=== PATIENT | male | born 1985 ===

== ENCOUNTER 2017-07-08 09:16 | Emergency (ER) | payer SELFPAY ==
--- NOTE | 2017-07-08 09:56 | UC ---
Lower Extremity/Ankle HPI - HPI Summary HPI Summary: 32 y/o male presents to the urgent care c/o of RT knee pain and swelling for the past 2 weeks. Pt states symptoms began when he did a sudden movement at work moving some boxes and he heard his RT knee popped. He has severe pain which resolved later that day. Since then he has been having mild pain specially when ambulating. Now he has developed pain in the left side of his RT lower leg, since he puts more weights on that side when he walks. Pain is 3/ 10 at rest and 6/10 when walking. He has been placing ice on and off. Pt denies fever, SOB, chest pain, N/V/D. Pt has not other complains. - History of Current Complaint Chief Complaint: UCLowerExtremity Stated Complaint: KNEE,CALF,LEG PAIN/INJURY Time Seen by Provider: 07/08/17 09:46 Hx Obtained From: Patient Onset/Duration: Sudden Onset, Lasting Days, Still Present Severity Initially: Severe Severity Currently: Moderate Pain Intensity: 6 - w/ ambulation Pain Scale Used: 0-10 Numeric Aggravating Factor(s): Ambulation Alleviating Factor(s): Rest Able to Bear Weight: Yes - Risk Factors Gout Risk Factors: Negative DVT Risk Factors: Negative Septic Arthritis Risk Factor: Negative - Allergies/Home Medications Allergies/Adverse Reactions: Allergies Allergy/AdvReac Type Severity Reaction Status Date / Time No Known Allergies Allergy Verified 07/08/17 09:36 Home Medications: Home Medications Ibuprofen [Advil] 400 mg PO 07/08/17 [History] PMH/Surg Hx/FS Hx/Imm Hx Previously Healthy: Yes Cardiovascular History: Hypertension - Diet control - Surgical History Surgical History: None - Family History Known Family History: Positive: Hypertension, Diabetes - Social History Occupation: Employed Full-time Lives: With Family Alcohol Use: Rare Substance Use Type: None Smoking Status (MU): Never Smoked Tobacco Review of Systems Constitutional: Negative Skin: Negative Eyes: Negative ENT: Negative Respiratory: Negative Cardiovascular: Negative Gastrointestinal: Negative Genitourinary: Negative Motor: Negative Neurovascular: Negative Musculoskeletal: Negative, Other: - RT knee pain and swelling Neurological: Negative Psychological: Negative All Other Systems Reviewed And Are Negative: Yes Physical Exam Triage Information Reviewed: Yes Appearance: Well-Appearing, No Pain Distress, Well-Nourished, Obese Vital Signs: Initial Vital Signs Temp 98.6 F 07/08/17 09:33 Pulse 77 07/08/17 09:33 Resp 18 07/08/17 09:33 BP 137/71 07/08/17 09:33 Pulse Ox 100 07/08/17 09:33 Vital Signs Reviewed: Yes Eye Exam: Normal Eyes: Positive: Conjunctiva Clear - PERRLA, EOMI, fundi grossly normal, ENT Exam: Normal ENT: Positive: Normal ENT inspection, Hearing grossly normal, Pharynx normal, TMs normal Dental Exam: Normal Neck exam: Normal Neck: Positive: Supple, Nontender, No Lymphadenopathy Respiratory Exam: Normal Respiratory: Positive: Chest non-tender, Lungs clear, Normal breath sounds Cardiovascular Exam: Normal Cardiovascular: Positive: RRR, No Murmur, Pulses Normal, Brisk Capillary Refill Abdominal Exam: Normal Abdomen Description: Positive: Nontender, No Organomegaly, Soft. Negative: CVA Tenderness (R), CVA Tenderness (L) Bowel Sounds: Positive: Present Musculoskeletal: Positive: Other: - Pt is able to bear weight and ambulate with mild pain. Medial side of RT knee with mild sweeling and tender to palapation. No overlying erythema or warmth. The RT knee is or deformity when compared with the L knee. Pt unable able to do deep knee bend. No tenderness to palpation of the patella, no effusion or ballottement. No tenderness over the infrapatellar tendon.. No quadriceps tenderness. No laxity of the ACL. PCL, MCL, or LCL. Valgus stress positive. Negative Mynor/Drawer sign. Negative Abilio. Distal motor and neurovascular status intact. Neurological Exam: Normal Psychological Exam: Normal Skin Exam: Normal Lower Extremity Course/Dx - Course Course Of Treatment: 32 y/o male presents to the urgent care c/o of RT knee pain and swelling for the past 2 weeks. Pt states symptoms began when he did a sudden movement at work moving some boxes and he heard his RT knee popped. He has severe pain which resolved later that day. Since then he has been having mild pain specially when ambulating. Now he has developed pain in the left side of his RT lower leg, since he puts more weights on that side when he walks. Pain is 3/10 at rest and 6/10 when walking. He has been placing ice on and off. Pt denies fever, SOB, chest pain, N/V/D.Hx obtained. RT knee X-ray ordered, Impression: mild suprapatellar join effusion, no osseous injury. Pt' s knee immobilized w/ knee Immobilizer, Rx Naproxen PO and advised RICE, F/u with PCP in 1 week if symptoms do not improve for further management. Pt understood and agreed. Left the clinic ambulating. - Differential Dx/Diagnosis Differential Diagnosis/HQI/PQRI: Arthritis, Contusion, Dislocation, Fracture ( Closed), Sprain, Tendonitis, Tenosynovitis Provider Diagnoses: 1-Acute RT knee pain Discharge - Discharge Plan Condition: Stable Disposition: HOME Prescriptions: Naproxen TAB* [Naprosyn 250 mg TAB*] 500 mg PO Q8H PRN #28 tab PRN Reason: Pain Patient Education Materials: Knee Pain (ED), Patellar Tendinitis (ED) Referrals: [facility] [place] [facility]IAN REFERRAL [Outside] - 1 Week No Primary Care Phys,NOPCP [Primary Care Provider] - Additional Instructions: Please take Naproxen as instructed after meals to alleviate pain and swelling. Keep your knee immobilized, apply ice and rest .If symptoms do not improve or worsen please return to the urgent care or f/u with your PCP for further evaluation and treatment in 1 week.
--- NOTE | 2017-07-08 10:23 | RAD ---
HISTORY: Right knee pain with swelling COMPARISONS: None VIEWS: Floor, Frontal, lateral, axial, and oblique views of the right knee FINDINGS: BONE DENSITY: Normal. BONES: There is no displaced fracture. JOINTS: There is no arthropathy. There is a small suprapatellar joint effusion ALIGNMENT: There is no dislocation. SOFT TISSUES: Unremarkable. OTHER FINDINGS: None. IMPRESSION: JOINT EFFUSION. NO ACUTE OSSEOUS INJURY. IF SYMPTOMS PERSIST, RECOMMEND REPEAT IMAGING.
== END 2017-07-08 10:45 | disposition home or self-care (01) ==
LOC: UCEAST 09:16
DX: M25.561 Pain in right knee (principal); I10 Essential (primary) hypertension
CPT/HCPCS: 99203; G0463

== ENCOUNTER 2018-04-29 09:37 | Emergency (ER) | payer SELFPAY ==
[2018-04-29] MEDS ORDERED: Ketorolac INJ* 60 MG/2 ML VIAL IM ONE (10:00)
--- NOTE | 2018-04-29 10:00 | ED ---
Back Pain - HPI Summary HPI Summary: 32 male presents with back pain for the past couple days. He states that it started on . 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 He states he lifts a lot of things and was driving. He denies any weakness. He denies any pain into his legs. No numbness or tingling. Does not have a history of back pain. Took ibuprofen without relief. He has been resting for the past couple days and has not gotten better. No fevers. No history of IV drug use. no saddle anesthesia or loss of bowel or bladder. - History of Current Complaint Chief Complaint: UCBackPain Stated Complaint: BACK PAIN Time Seen by Provider: 04/29/18 09:56 Pain Intensity: 8 - Allergies/Home Medications Allergies/Adverse Reactions: Allergies Allergy/AdvReac Type Severity Reaction Status Date / Time No Known Allergies Allergy Verified 04/29/18 09:48 PMH/Surg Hx/FS Hx/Imm Hx Endocrine/Hematology History: Denies: Hx Anticoagulant Therapy Respiratory History: Denies: Hx Asthma Infectious Disease History: No Infectious Disease History: Denies: Traveled Outside the [place] in Last 30 Days - Family History Known Family History: Positive: Hypertension, Diabetes - Social History Alcohol Use: None Substance Use Type: Reports: None Smoking Status (MU): Heavy Every Day Tobacco Smoker Amount Used/How Often: 1 PPD Review of Systems Negative: Fever Negative: Chest Pain Negative: Shortness Of Breath Positive: Myalgia - back pain All Other Systems Reviewed And Are Negative: Yes Physical Exam Triage Information Reviewed: Yes Vital Signs On Initial Exam: Initial Vitals Temp Pulse Resp BP Pulse Ox 97.7 F 87 18 120/83 97 04/29/18 09:48 04/29/18 09:48 04/29/18 09:48 04/29/18 09:48 04/29/18 09:48 Vital Signs Reviewed: Yes Appearance: Positive: Well-Appearing Skin: Positive: Warm, Dry Head/Face: Positive: Normal Head/Face Inspection Eyes: Positive: Normal, Conjunctiva Clear ENT: Positive: Pharynx normal Respiratory/Lung Sounds: Positive: Clear to Auscultation, Breath Sounds Present Cardiovascular: Positive: Normal, RRR Musculoskeletal: Positive: Strength/ROM Intact - back, Other - Negative straight legs, good pulses, sensation grossly intact good strength in lower legs tenderness lower back, Neurological: Positive: Normal, Reflexes Intact - patella Psychiatric: Positive: Normal Diagnostics - Vital Signs Vital Signs Temp Pulse Resp BP Pulse Ox 04/29/18 09:48 97.7 F 87 18 120/83 97 - Laboratory Lab Statement: Any lab studies that have been ordered have been reviewed, and results considered in the medical decision making process. - Radiology back Xray Interpretation: No Acute Changes - IMPRESSION: MILD DISC SPACE NARROWING AT THE L5-S1 LEVEL. Radiology Interpretation Completed By: Radiologist Re-Evaluation - Re-Evaluation First Eval Re-Evaluation Time: 11:02 Change: Improved Comment: feeling better after toradol Back Pain Course/Dx - Course Course Of Treatment: 32 male presents with back pain for the past couple days. He states that it started on . 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 He states he lifts a lot of things and was driving. He denies any weakness. He denies any pain into his legs. No numbness or tingling. Does not have a history of back pain. Took ibuprofen without relief. He has been resting for the past couple days and has not gotten better. No fevers. No history of IV drug use. no saddle anesthesia or loss of bowel or bladder. on exam has tenderness lower back. neurovascular intact. xray normal. gave toradol and feeling better. will treat with muscle relaxer. will give off for next couple days as job is to lift objects. will have establish care with primary to follow up.patient understand and agrees with plan. - Diagnoses Differential Diagnosis/HQI/PQRI: Positive: Herniated Disc, Strain, Sprain Provider Diagnoses: Back pain Discharge - Sign-Out/Discharge Documenting (check all that apply): Discharge/Admit/Transfer - Discharge Plan Condition: Good Disposition: HOME Prescriptions: Cyclobenzaprine TAB* [Flexeril 10 MG TAB*] 10 mg PO TID PRN #15 tab PRN Reason: Pain Patient Education Materials: Back Pain (ED) Forms: *Work Release Referrals: [facility] [place] [facility]IAN REFERRAL [Outside] Additional Instructions: Take muscle relaxers three times a day Use ibuprofen or Tylenol for pain every 6 hours ice/heat area, move as much as possible Establish care with primary Return to ED if develop any new or worsening symptoms - Billing Disposition and Condition Condition: GOOD Disposition: HOME
--- NOTE | 2018-04-29 10:42 | RAD ---
INDICATION: Low back pain. COMPARISON: There are no prior studies available for comparison. TECHNIQUE: 5 views of the lumbar spine were obtained including lateral, oblique, AP and a coned-down lateral view of the lumbar sacral junction. FINDINGS: The vertebra are in normal alignment. No fracture is seen. There is mild disc space narrowing at the L5-S1 level. The remaining disc spaces appear maintained. IMPRESSION: MILD DISC SPACE NARROWING AT THE L5-S1 LEVEL.
== END 2018-04-29 11:14 | disposition home or self-care (01) ==
LOC: UCEAST 09:37
DX: M54.5 Low back pain (principal); F17.210 Nicotine dependence, cigarettes, uncomplicated
CPT/HCPCS: 72110; 99212; G0463; J1885